=== PATIENT | female | born 1945 | race Two or more races ===

== ENCOUNTER 2017-04-16 10:37 | Outpatient (CLI) | payer OTHER | END 2017-04-16 10:42 | disposition home or self-care (01) | LOC: RAD 501 10:37 | DX: S80.02XA Contusion of left knee, initial encounter (principal); S80.01XA Contusion of right knee, initial encounter ==

== ENCOUNTER 2021-02-27 07:35 | Outpatient (CLI) | payer OTHER | END 2021-02-27 07:44 | disposition home or self-care (01) | LOC: RAD 07:35 | DX: M25.511 Pain in right shoulder (principal) ==

== ENCOUNTER 2021-09-05 09:30 | Outpatient (CLI) | payer OTHER | END 2021-09-05 09:45 | disposition home or self-care (01) | LOC: PPH VACUNA 09:30 | PROVIDERS: ATTEND Emergency Medicine Pediatric Emergency Medicine | DX: Z23 Encounter for immunization (principal) ==

== ENCOUNTER 2021-12-16 07:39 | Emergency (ER) | payer OTHER ==
[~2021-12-16] VITALS: Ht 162.6 cm; Wt 58.1 kg
[2021-12-16] MEDS ORDERED: NABUMETONE750 MG PO (18:45)
[2021-12-16] MEDS ORDERED: TAMS0.4C PO (18:45)
[2021-12-16] MEDS ORDERED: PYRIDIUM100 M1 PO (18:45)
== END 2021-12-16 18:59 | disposition home or self-care (01) ==
LOC: ER 07:39
DX: N20.0 Calculus of kidney (principal); E78.00 Pure hypercholesterolemia, unspecified; K57.30 Diverticulosis of large intestine without perforation or abscess without bleeding; Z88.0 Allergy status to penicillin